=== PATIENT | male | born 1955 | race Caucasian/White ===

== ENCOUNTER 2017-03-26 06:05 | Observation (INO) | payer OTHER ==
[~2017-03-26] VITALS: Ht 172.7 cm; Wt 84.9 kg
[~2017-03-26 06:05] MED LIST: AMLO10TA2 PO; ASPI81TA23 PO; ATOR40TA16 PO; FLAX100013 PO; FOLI1TAB6 PO; HYDR12.57 PO; HYDR200T3 PO; LISI-519 PO; METH2.5T PO; NAPR220C22 PO; PROS5TAB PO
[2017-03-26] MEDS ORDERED: METOPROLOL TARTRATE 25 MG TAB PO PRN (06:45)
[2017-03-26] MEDS ORDERED: POVIDONE IODINE 5% (ANTISEPSIS KIT) 4 APPLICATIONS EACH NARE PRN (06:45)
[2017-03-26] MEDS ORDERED: CHLORHEXIDINE GLUCONATE 2 % 1 PACK (2 CLOTHS) TOPICAL PRN (06:45)
[2017-03-26] MEDS ORDERED: LACTATED RINGER'S 1000 ML IV PRN (06:45)
[2017-03-26] MEDS ORDERED: SODIUM CHLORID 0.9% 500 ML IV PRN (06:45)
--- NOTE | 2017-03-26 07:08 | RADRPT ---
EXAM DATE/TIME: 03/26/2017 06:46 [facility] COMPARISON: ABDOMEN KUB ONLY, March 06, 2016, 6:31. INDICATIONS : Pre-op lithotripsy. MEDICAL HISTORY : None. SURGICAL HISTORY : None. ENCOUNTER: Initial ACUITY: 1 day PAIN SCORE: 0/10 LOCATION: Bilateral abdomen FINDINGS: 2 frontal supine views of the abdomen demonstrate a stable 7 x 6 mm density overlying the left lower pole kidney. No other abnormal densities are seen overlying the kidneys or along the expected course of the ureters. There is persistent density in the inferior pelvis likely representing dense prostate calcification. Otherwise, there is enlarged the bowel gas pattern. Bones demonstrate no acute finding. CONCLUSION: 1. Stable examination with 7 x 6 mm density, likely representing a renal stone, overlying the left lo wer pole kidney. No other renal stones are seen. 2. Extensive prostate calcification. Everardo Jasmine MD on March 26, 2017 at 7:03 Board Certified Radiologist. This report was verified electronically.
[2017-03-26 08:00] LABS: AUTOMATED NEUTROPHIL # 5.6 TH/MM3 (1.8-7.7); BASOPHIL % 0.5 % (0.0-2.0); EOSINOPHIL # 0.1 TH/MM3 (0-0.4); EOSINOPHIL % 1.1 % (0.0-4.0); HEMATOCRIT 41.4 % (39.0-51.0); HEMOGLOBIN 14.7 GM/DL (13.0-17.0); LYMPH % 18.3 % (9.0-44.0); LYMPHOCYTE # 1.4 TH/MM3 (1.0-4.8); MEAN CELL VOLUME 94.2 FL (80.0-100.0); MEAN CORPUSCULAR HEMOGLOBIN 33.4 PG (27.0-34.0); MEAN CORPUSCULAR HGB CONC 35.5 % (32.0-36.0); MONO % 7.9 % (0.0-8.0); MONOCYTE # 0.6 TH/MM3 (0-0.9); NEUT % 72.2 % (16.0-70.0); PLATELET COUNT 244 TH/MM3 (150-450); RED BLOOD COUNT 4.39 MIL/MM3 (4.50-5.90); RED CELL DISTRIBUTION WIDTH 13.9 % (11.6-17.2); WHITE BLOOD COUNT 7.8 TH/MM3 (4.0-11.0)
[2017-03-26] MEDS ORDERED: HYDROmorphone HCL PF 2 MG/ML VIAL ONE (09:17)
--- NOTE | 2017-03-26 10:07 | PD.OP ---
Operative Report Date of Surgery: Mar 26, 2017 Preoperative Diagnosis: (1) Renal calculus, left Postoperative Diagnosis: (1) Renal calculus, left Procedure: Extracorporeal shockwave lithotripsy left renal calculus Anesthesia: General Surgeon: Finn Gonzalez Claim Professional(s): None Operation and Findings: Indication for procedure: Case of a pleasant 61-year-old gentleman with a 6 mm left lower pole renal calculus who presents today to undergo extra corporeal shockwave lithotripsy. Operative procedure in detail: Patient was brought to the operating suite and placed supine on the lithotripsy table. He was then placed and general anesthesia. After appropriate timeout was undertaken proceeded with localizing the patient's left lower pole renal calculus with fluoroscopy. The patient then underwent extra corporeal shockwave lithotripsy. The patient received a total of 3000 shocks utilizing the [employer] mobile lithotripsy unit with a maximum power level setting of 6. At conclusion of the procedure the stone was spread out and consistent with fragmentation. He tolerated the procedure without complications and transferred to the PACU in satisfactory condition. Finn Gonzalez MD Mar 26, 2017 10:07
[2017-03-26] MEDS ORDERED: DO NOT ADM ANY ANTICOAGULANT DRUGS PRN (10:08)
[2017-03-26] MEDS ORDERED: PERC5TAB12 PO (10:14)
[2017-03-26 10:54] VITALS: BP 126/80; PULSE 65; RESP 20; TEMP 97.9; O2SAT 97
[2017-03-26] MEDS ORDERED: ONDANSETRON HCL 4 MG/2 ML VIAL IV PUSH PRN (11:00)
[2017-03-26] MEDS ORDERED: oxyCODONE/ACETAMINOPHEN 5 MG/325 MG TAB PO PRN (11:00)
[2017-03-26] MEDS ORDERED: ONDANSETRON HCL 4 MG/2 ML VIAL IV ONE (12:00)
[2017-03-26] MEDS ORDERED: DEXAMETHASONE SOD PHOS 4 MG/ML VIAL IV ONE (12:00)
[2017-03-26] MEDS ORDERED: PROPOFOL 200 MG/20 ML AMP IV ONE (12:00)
[2017-03-26] MEDS ORDERED: LIDOCAINE HCL 1% PF 5 ML SYRINGE OTHER ONE (12:00)
[2017-03-26] MEDS ORDERED: ATORVASTATIN 40 MG TAB PO SCH (21:00)
--- NOTE | 2017-03-26 21:06 | EKG ---
Date Performed: 03/26/2017 Time Performed: 06:59:35 PTAGE: 61 years EKG: Sinus rhythm NORMAL ECG PREVIOUS TRACING : 03/06/2016 06.52 Compared to the previous tracing no PVCs present DOCTOR: Nisha Scott Interpretating Date/Time 03/26/2017 21:06:01
[2017-03-27] MEDS ORDERED: LISINOPRIL 5 MG TAB PO SCH (09:00)
[2017-03-27] MEDS ORDERED: HYDROXYCHLOROQUINE SULFATE 200 MG TAB PO SCH (09:00)
[2017-03-27] MEDS ORDERED: HYDROCHLOROTHIAZIDE 12.5 MG CAP PO SCH (09:00)
[2017-03-27] MEDS ORDERED: FINASTERIDE 5 MG TAB PO SCH (09:00)
[2017-03-27] MEDS ORDERED: FOLIC ACID 1 MG TAB PO SCH (09:00)
[2017-03-31] MEDS ORDERED: PROS5TAB PO (17:03)
== END 2017-03-26 14:35 | disposition home or self-care (01) ==
LOC: HSDC 06:05 → HSDI 10:11
PROVIDERS: ADMIT Urology; ATTEND Urology
DX: N20.0 Calculus of kidney (principal); I10 Essential (primary) hypertension; E78.5 Hyperlipidemia, unspecified; M06.9 Rheumatoid arthritis, unspecified; F17.200 Nicotine dependence, unspecified, uncomplicated; Z79.899 Other long term (current) drug therapy; Z79.82 Long term (current) use of aspirin
CPT/HCPCS: 00873; 50590; 74018; 85025; 93005; J1100; J1170; J2405; J7120

== ENCOUNTER → 2017-04-15 | Outpatient (CLI) | payer OTHER ==
[~2017-04-15] MED LIST changes: +PERC5TAB12 PO
--- NOTE | 2017-04-15 14:53 | RADRPT ---
EXAM DATE/TIME: 04/15/2017 13:49 [facility] COMPARISON: ABDOMEN KUB ONLY, March 06, 2016, 6:31. ABDOMEN KUB ONLY, March 26, 2017, 6:46. INDICATIONS : Post ESWL. Evaluate for kidney stone. MEDICAL HISTORY : Renal calculi. SURGICAL HISTORY : ENCOUNTER: Initial ACUITY: 1 day PAIN SCORE: 0/10 LOCATION: Left Abdomen FINDINGS: Supine view of the abdomen was performed. The abdominal bowel gas pattern is normal. No abnormal ma sses, or organomegaly is seen. The osseous structures are unremarkable. A 7 mm calcification overly ing the left kidney lower pole region remains present and unchanged there is a prostatic calcificatio ns additionally noted. CONCLUSION: Stable calcifications. 7 mm left kidney lower pole calcification. Extensive prostatic calcifications. . Bob Murillo MD on April 15, 2017 at 14:48 Board Certified Radiologist. This report was verified electronically.
== END ==
LOC: HRAD 13:39
PROVIDERS: ATTEND Urology
DX: N20.0 Calculus of kidney (principal)
CPT/HCPCS: 74018

== ENCOUNTER → 2017-07-25 | Outpatient (CLI) | payer OTHER ==
--- NOTE | 2017-07-25 09:30 | RADRPT ---
EXAM DATE/TIME: 07/25/2017 08:08 [facility] COMPARISON: No previous studies available for comparison. INDICATIONS : Follow up left side kidney stone, no flank pain at this time MEDICAL HISTORY : nephrolithotomy Mar 2017 SURGICAL HISTORY : None. ENCOUNTER: Initial ACUITY: 4 - 6 months PAIN SCORE: 0/10 LOCATION: Left abdomen FINDINGS: Supine view of the abdomen was performed. The abdominal bowel gas pattern is normal. There is a missael t 14 mm calcification lower pole left kidney with a central dense area of calcification. Extensive pr ostatic calcifications are noted. CONCLUSION: 1. Left lower pole renal calculus. No acute findings. Adriano Aly MD on July 25, 2017 at 9:23 Board Certified Radiologist. This report was verified electronically.
== END ==
LOC: HRAD 07:52
PROVIDERS: ATTEND Urology
DX: N20.0 Calculus of kidney (principal)
CPT/HCPCS: 74018